=== PATIENT | female | born 1970 | race Caucasian/White ===

== ENCOUNTER 2016-08-06 21:23 | Emergency (ER) | payer BC ==
[2016-08-06 23:12] VITALS: BP 133/73
[2016-08-06] MEDS ORDERED: diphenhydrAMINE HCL 50 MG CAPSULE PO ONE (23:37)
[2016-08-06] MEDS ORDERED: diphenhydrAMINE HCL 25 MG CAPSULE ONE (23:40)
--- NOTE | 2016-08-06 23:46 | ERNOTE ---
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 NEVER HAD PROBLEMS BEFORE BUT TONIGHT ABOUT 2014 , AFTER SUPPER, SHE STARTED ITCHING AND HAVING RASH ALL OVER BUT WORST ON HER ARMS AND LEGS AND AROUND WAIST. SHE SAYS IT IS BETTER NOW . SHE HAS TAKEN NOTHING FOOR IT OTHER THAN A HOT SHOWER, WHICH MADE IT WORSE, AND CHANGING CLOTHES. Review of Systems - Review of Systems Constitutional: Present: See HPI EYE: Present: no symptoms reported ENT: Present: no symptoms reported Respiratory: Present: no symptoms reported Cardiology: Present: no symptoms reported Gastrointestinal/Abdominal: Present: constipation Genitourinary: Present: no symptoms reported Musculoskeletal: Present: no symptoms reported Skin: Present: See HPI, rash Neurological: Present: no symptoms reported Endocrine: Present: no symptoms reported Hematologic/Lymphatic: Present: no symptoms reported Psych: Present: no symptoms reported - Patient's Past Medical History Patient History - Medical: No pertinent hx Patient History - Cardiac/Respiratory: No pertinent hx Patient History - Cancer: No Hx of Cancer Patient History - Surgical Procedures: No surgical history Patient History - Other: None LMP (females 10-50): this week - Social History Living Situations: home Abuse History: No History of abuse Psych History: No pertinent hx Smoking Status: Never smoker Alcohol Use: none Drug Use: none - Immunizations Immunizations Up to Date: Yes Hx Pneumococcal Vaccination: No History of Influenza Vaccine: No Physical Exam - Physical Exam General Appearance: Present: wd/wn, alert, no apparent distress Eye Exam: Normal inspection: bilateral Ears, Nose, Throat: Present: normal ENT inspection Respiratory: Present: no respiratory distress, normal breath sounds Cardiovascular/Chest: Present: regular rate, rhythm, no murmur Neurological Exam: Present: alert, oriented Skin Exam: Present: warm/dry, skin rash - MILD RASH WITH PURITIS , MAINLY ON FOREARMS AND LOWER LEGS AND AROUND WAIST BAND. SHE HAS SOME SCRATCHES ON HER BACK WHERE SHE HAS BEEN SCRATCHING EARLIER. THERE IS MILD ERYTHEMA AND NOT TRUE HIVES PRESENT BUT ITCHING IS THE MOST PROMINENT FEATURE. SHE DENIES ANY CHEMICALS HAD BEEN USED IN THE [place] YET. ED Progress - Vital Signs Patient's Vital Signs:: I have reviewed the patient's vital signs. Vital Signs: Vital Signs 08/06/16 08/06/16 08/06/16 21:35 21:48 23:11 Temperature 36.7 C Pulse Rate 76 68 Respiratory 18 18 16 Rate Blood Pressure 122/78 133/73 O2 Sat by Pulse 97 97 98 Oximetry - Progress/Reassessment Chief Complaint: Allergic Reaction Departure Clinical Impression: Rash of body - Departure Disposition: Home Follow Up Needed Condition: Good Instructions: Rash, [id number], Contact Dermatitis, [id number] Additional Instructions: YOU APPEAR TO HAVE CONTACTED SOMETHING, PROBABLY IN THE [place] OR DITCHES THAT CAUSE THE RASH AND ITCHING. TAKE BENADRYL 50 MG EVERY 6 HOURS UNTIL THE RASH IS GONE. WASH THE CLOTHES THAT YOU WERE WEARING IN WARM - HOT WATER. CLEAN UNDER YOUR FINGER NAILS IN CASE ANYTHING IS PRESENT THERE. TRY NOT TOO SCRATCH IT TENDS TO MAKE THE ITCHING WORSE. IF STILL HAVING PROBLEMS ADDING TAGAMET OR ZANTAC OR PEPCID TO THE BENADRYL SOMETIMES HELPS. COOL COMPRESSES ALSO OFTEN HELP. IF WORSE OR NOT IMPROVING IN 2-3 DAYS STEROIDS MAY BE NEEDED TO HELP. .
== END 2016-08-06 23:50 | disposition home or self-care (01) ==
LOC: ER 21:23
DX: R21 Rash and other nonspecific skin eruption (principal)